=== PATIENT | male | born 1960 | race Caucasian/White ===

== ENCOUNTER 2018-06-16 06:22 | Emergency (ER) | payer MEDICAID ==
[~2018-06-16] VITALS: Ht 165.1 cm; Wt 73.0 kg
[~2018-06-16 06:22] MED LIST: AMLO10TA80 PO; ASPI-1159 PO; ATOR-2 PO; CINA30 PO; CLAR500T PO; DEXL60CA3 PO; FOLI-43 PO; FURO40TA5 PO; HYDR-4135 PO; LABE100T PO; OMEP20CA10 PO; REN800 PO; VALS320T2 PO; amoxicillin PO
[2018-06-16] MEDS ORDERED: SODIUM CHLORIDE 0.9% 1,000 ML IV ONE (08:11)
[2018-06-16] MEDS ORDERED: DEXTROSE 50% WATER 50ML SYRINGE IV ONE (08:30)
[2018-06-16] MEDS ORDERED: CALCIUM CHLORIDE 1GM/10ML SYR IV ONE (08:30)
[2018-06-16] MEDS ORDERED: INSULIN REGULAR (HUMULIN R) 300UNITS/3ML IV ONE (08:30)
[2018-06-16] MEDS ORDERED: SODIUM BICARBONATE 8.4% 1 MEQ/ML 50ML SYR IV ONE (08:30)
[2018-06-16 08:48] LABS: BASOPHILS % 0.9 % (0.0-2.0); EOSINOPHILS % 1.8 % (0.0-5.0); HEMATOCRIT. 35.3 % (42.0-52.0); HEMOGLOBIN. 11.3 g/dL (14.0-18.0); MEAN CORPUSCULAR HEMOGLOBIN 28.7 pg (28.0-32.0); MEAN CORPUSCULAR VOLUME 89.5 fL (80.0-94.0); MEAN PLATELET VOLUME 8.9 fl (7.4-10.4); MONOCYTES % 9.5 % (2.0-8.0); NEUTROPHILS % 69.8 % (40.0-76.0); PLATELET 165 x1000/uL (130-400); RED BLOOD CELL COUNT 3.94 mill/uL (4.7-6.1); RED CELL DISTRIBUTION WIDTH 16.7 % (11.6-14.6)
[2018-06-16 08:53] LABS: CHLORIDE 101 mEq/L (98-107)
[2018-06-16 08:55] LABS: INR 1.1; PROTHROMBIN TIME 11.5 sec (9.4-11.6)
[2018-06-16] MEDS ORDERED: IOHEXOL-300 100 ML BOTTLE ONE (10:30)
[2018-06-16 11:51] VITALS: BP 177/91
== END 2018-06-16 12:03 | disposition home or self-care (01) ==
LOC: ER 06:22
DX: R63.4 Abnormal weight loss (principal); R19.7 Diarrhea, unspecified; E87.5 Hyperkalemia; I10 Essential (primary) hypertension; E11.9 Type 2 diabetes mellitus without complications; Z86.73 Personal history of transient ischemic attack (TIA), and cerebral infarction without residual deficits; Z87.891 Personal history of nicotine dependence; Z79.82 Long term (current) use of aspirin; Z79.899 Other long term (current) drug therapy
CPT/HCPCS: 36415; 71260; 74177; 80053; 83880; 84484; 85025; 85610; 93005; 96374; 96375; 99285; J1815; J3490; J7030; Q9967

== ENCOUNTER 2018-07-25 14:27 | Emergency (ER) | payer MEDICAID ==
[~2018-07-25] VITALS: Ht 162.6 cm; Wt 59.2 kg
[~2018-07-25 14:27] MED LIST changes: -LABE100T PO; +LABE100T5 PO
[2018-07-25 15:33] LABS: BASOPHILS % 0.8 % (0.0-2.0); HEMATOCRIT. 32.1 % (42.0-52.0); HEMOGLOBIN. 10.4 g/dL (14.0-18.0); LYMPHOCYTES % 20.7 % (20.0-50.0); MEAN CORPUSCULAR HEMOGLOBIN 28.5 pg (28.0-32.0); MEAN CORPUSCULAR VOLUME 87.6 fL (80.0-94.0); MEAN PLATELET VOLUME 8.6 fl (7.4-10.4); MONOCYTES % 8.7 % (2.0-8.0); NEUTROPHILS % 68.8 % (40.0-76.0); PLATELET 192 x1000/uL (130-400); RED BLOOD CELL COUNT 3.66 mill/uL (4.7-6.1)
[2018-07-25 15:40] LABS: CHLORIDE 100 mEq/L (98-107); INR 1.2; PROTHROMBIN TIME 11.7 sec (9.1-11.1)
[2018-07-25] MEDS ORDERED: IOHEXOL-350 100 ML BOTTLE ONE (21:42)
[2018-07-25 22:27] VITALS: BP 134/68
== END 2018-07-25 22:28 | disposition home or self-care (01) ==
LOC: ER 14:27
DX: I12.0 Hypertensive chronic kidney disease with stage 5 chronic kidney disease or end stage renal disease (principal); N18.6 End stage renal disease; R19.7 Diarrhea, unspecified; E78.00 Pure hypercholesterolemia, unspecified; E11.22 Type 2 diabetes mellitus with diabetic chronic kidney disease; Z99.2 Dependence on renal dialysis; Z79.899 Other long term (current) drug therapy; Z79.82 Long term (current) use of aspirin
CPT/HCPCS: 36415; 71275; 74174; 80053; 84484; 85025; 85610; 93005; 99285; Q9967

== ENCOUNTER 2020-01-18 16:30 | Inpatient (IN) | payer MEDICAID, OTHER ==
[~2020-01-18] VITALS: Ht 165.1 cm; Wt 59.1 kg
[~2020-01-18 16:30] MED LIST changes: +ACUL5 RIGHTEYE; -ASPI-1159 PO; +ASPI-1497 PO; +CHOL200074 PO; -CINA30 PO; -CLAR500T PO; -LABE100T5 PO; +LABE200T28 PO; +LOPE2CAP PO; +MINO10TA PO; +OFLO5DRO3 RIGHTEYE; -OMEP20CA10 PO; +PRED5DRO22 RIGHTEYE; +TIMO5DRO32 RIGHTEYE; -VALS320T2 PO; -amoxicillin PO
[2020-01-19] VITALS (7 sets, daily range): BP systolic 102–181; BP diastolic 52–89
[2020-01-19 00:36] LABS: BASOPHILS % 0.9 % (0.0-2.0); EOSINOPHILS % 1.1 % (0.0-5.0); HEMATOCRIT. 43.1 % (42.0-52.0); HEMOGLOBIN. 14.1 g/dL (14.0-18.0); LYMPHOCYTES % 21.8 % (20.0-50.0); MEAN CORPUSCULAR HEMOGLOBIN 29.5 pg (28.0-32.0); MEAN CORPUSCULAR VOLUME 89.9 fL (80.0-94.0); MEAN PLATELET VOLUME 8.8 fl (7.4-10.4); NEUTROPHILS % 66.2 % (40.0-76.0); PLATELET 249 x1000/uL (130-400); RED BLOOD CELL COUNT 4.79 mill/uL (4.7-6.1); RED CELL DISTRIBUTION WIDTH 15.2 % (11.6-14.6)
[2020-01-19 00:40] LABS: CHLORIDE 99 mEq/L (98-107)
[2020-01-19 00:41] LABS: INR 1.1; PARTIAL THROMBOPLASTIN TIME 30.3 sec (23.4-31.0); PROTHROMBIN TIME 11.6 sec (9.6-11.0)
[2020-01-19 00:43] LABS: ETHANOL BLOOD < 10 mg/dL
[2020-01-19] MEDS ORDERED: LOPERAMIDE HCL 2MG CAPSULE PO PRN (06:45)
[2020-01-19] MEDS: ASPIRIN 81MG TABLET PO SCH ×2 (09:00→09:48)
[2020-01-19] MEDS: AMLODIPINE 10MG TABLET PO SCH (09:00)
[2020-01-19] MEDS: MINOXIDIL 10MG TABLET PO SCH ×2 (09:00→17:00)
[2020-01-19] MEDS: CHOLECALCIFEROL (D3) 1000 UNIT TABLET PO SCH (09:47)
[2020-01-19] MEDS: FOLIC ACID/VITAMIN B COMP W-C TABLET PO SCH (09:48)
[2020-01-19] MEDS: FOLIC ACID 1MG TABLET PO SCH (09:48)
[2020-01-19] MEDS: FUROSEMIDE 40MG TABLET PO SCH (09:49)
[2020-01-19] MEDS: TIMOLOL MALEATE 0.5% OPHTH DROPS 5ML RIGHTEYE SCH ×2 (09:49→21:47)
[2020-01-19] MEDS ORDERED: LIDOCAINE HCL 1% 20ML VIAL (Pyxis) INJ ONE (10:50)
[2020-01-19] MEDS ORDERED: SODIUM BICARBONATE 4% (2.4MEQ) 5ML VIAL IV ONE (10:51)
[2020-01-19] MEDS ORDERED: HYDRALAZINE 20MG/ML VIAL IV PRN (11:45)
[2020-01-19] MEDS: PREDNISOLONE ACETATE 1% OPHTH DROPS 5ML RIGHTEYE SCH ×2 (12:47→17:54)
[2020-01-19] MEDS: LABETALOL HCL 200MG TABLET PO SCH ×2 (14:00→21:46)
[2020-01-19] MEDS: HYDRALAZINE HCL 50MG TABLET PO SCH ×2 (14:00→21:46)
[2020-01-19] MEDS ORDERED: LEVOFLOXACIN 500MG PREMIX 100 ML IV SCH (17:00)
[2020-01-19] MEDS ORDERED: ATORVASTATIN CALCIUM 40MG TABLET PO SCH (21:00)
[2020-01-20] VITALS: BP 199/77
[2020-01-20] MEDS: PREDNISOLONE ACETATE 1% OPHTH DROPS 5ML RIGHTEYE SCH ×3 (00:05→12:30)
[2020-01-20 04:00] VITALS: BP 132/54
[2020-01-20] MEDS: LABETALOL HCL 200MG TABLET PO SCH ×2 (06:21→14:00)
[2020-01-20] MEDS: HYDRALAZINE HCL 50MG TABLET PO SCH ×2 (06:21→14:00)
[2020-01-20 07:09] LABS: BASOPHILS % 0.6 % (0.0-2.0); EOSINOPHILS % 1.4 % (0.0-5.0); HEMATOCRIT. 44.4 % (42.0-52.0); HEMOGLOBIN. 14.5 g/dL (14.0-18.0); LYMPHOCYTES % 19.6 % (20.0-50.0); MEAN CORPUSCULAR HEMOGLOBIN 28.9 pg (28.0-32.0); MEAN CORPUSCULAR VOLUME 88.6 fL (80.0-94.0); MEAN PLATELET VOLUME 8.7 fl (7.4-10.4); MONOCYTES % 9.3 % (2.0-8.0); NEUTROPHILS % 69.1 % (40.0-76.0); PLATELET 303 x1000/uL (130-400); RED BLOOD CELL COUNT 5.01 mill/uL (4.7-6.1); RED CELL DISTRIBUTION WIDTH 15.4 % (11.6-14.6)
[2020-01-20 08:00] VITALS: BP 100/50
[2020-01-20] MEDS: AMLODIPINE 10MG TABLET PO SCH (09:00)
[2020-01-20] MEDS: MINOXIDIL 10MG TABLET PO SCH (09:00)
[2020-01-20] MEDS: FUROSEMIDE 40MG TABLET PO SCH (09:06)
[2020-01-20] MEDS: ASPIRIN 81MG TABLET PO SCH (09:06)
[2020-01-20] MEDS: FOLIC ACID 1MG TABLET PO SCH (09:06)
[2020-01-20] MEDS: FOLIC ACID/VITAMIN B COMP W-C TABLET PO SCH (09:06)
[2020-01-20] MEDS: CHOLECALCIFEROL (D3) 1000 UNIT TABLET PO SCH (09:06)
[2020-01-20] MEDS: TIMOLOL MALEATE 0.5% OPHTH DROPS 5ML RIGHTEYE SCH (09:38)
[2020-01-20 12:00] VITALS: BP 100/50
[2020-01-20 13:10] VITALS: BP 118/65
[2020-01-20] MEDS ORDERED: LEVOFLOXACIN 250MG PREMIX 50 ML IV SCH (17:00)
== END 2020-01-20 14:49 | disposition home or self-care (01) ==
LOC: ER 16:30 → 6WST 01-19 00:43 → EDBEDREQ 01-19 00:47 → EDBEDREQTM 01-19 00:47 → EDBEDREQDT 01-19 00:47 → ENRESERV 01-19 03:06 → 6WST 01-19 05:53
PROVIDERS: ADMIT Internal Medicine; ATTEND Internal Medicine
PROC: 5A1D70Z Performance of Urinary Filtration, Intermittent, Less than 6 Hours Per Day (ICD-10-PCS; principal; 2020-01-19)
PROC: 0W9G3ZZ Drainage of Peritoneal Cavity, Percutaneous Approach (ICD-10-PCS; 2020-01-19)
DX: R18.8 Other ascites (principal); E43 Unspecified severe protein-calorie malnutrition; E11.22 Type 2 diabetes mellitus with diabetic chronic kidney disease; I12.0 Hypertensive chronic kidney disease with stage 5 chronic kidney disease or end stage renal disease; N18.6 End stage renal disease; E78.5 Hyperlipidemia, unspecified; Z99.2 Dependence on renal dialysis; Z79.899 Other long term (current) drug therapy; Z79.82 Long term (current) use of aspirin; Z68.21 Body mass index [BMI] 21.0-21.9, adult
CPT/HCPCS: 36415; 49083; 71045; 74176; 80048; 80053; 80320; 82962; 83880; 84145; 84484; 85025; 87015; 87045; 87427; 87449; 87493; 93005; 99285; J0360; J1956; J3490; G0480

== ENCOUNTER 2020-02-15 09:27 | Emergency (ER) | payer MEDICAID, OTHER ==
[~2020-02-15] VITALS: Ht 165.1 cm; Wt 61.0 kg
[~2020-02-15 09:27] MED LIST changes: -ACUL5 RIGHTEYE; -OFLO5DRO3 RIGHTEYE
[2020-02-15 11:27] LABS: BASOPHILS % 1.1 % (0.0-2.0); EOSINOPHILS % 2.1 % (0.0-5.0); HEMATOCRIT. 38.2 % (42.0-52.0); HEMOGLOBIN. 12.5 g/dL (14.0-18.0); LYMPHOCYTES % 17.4 % (20.0-50.0); MEAN CORPUSCULAR VOLUME 88.8 fL (80.0-94.0); MEAN PLATELET VOLUME 8.1 fl (7.4-10.4); MONOCYTES % 8.3 % (2.0-8.0); NEUTROPHILS % 71.1 % (40.0-76.0); PLATELET 280 x1000/uL (130-400); RED CELL DISTRIBUTION WIDTH 15.8 % (11.6-14.6)
[2020-02-15 11:35] LABS: CHLORIDE 101 mEq/L (98-107)
[2020-02-15 12:53] LABS: PROTHROMBIN TIME 11.1 sec (9.6-11.0)
[2020-02-15] MEDS ORDERED: LIDOCAINE HCL/EPINEPHRINE 1%-EPI 1:100,000 30 ML VIAL INFIL ONE (14:15)
[2020-02-15] MEDS ORDERED: LIDOCAINE HCL/EPINEPHRINE 1%-EPI 1:100,000 20 ML VIAL INFIL SCH (14:30)
[2020-02-15 20:42] VITALS: BP 130/62
== END 2020-02-15 20:45 | disposition home or self-care (01) ==
LOC: ER 09:27
DX: R41.0 Disorientation, unspecified (principal); I12.0 Hypertensive chronic kidney disease with stage 5 chronic kidney disease or end stage renal disease; N18.6 End stage renal disease; Z99.2 Dependence on renal dialysis; Z98.890 Other specified postprocedural states; Z79.899 Other long term (current) drug therapy; Z79.82 Long term (current) use of aspirin
CPT/HCPCS: 36415; 49083; 80053; 85025; 93005; 99285

== ENCOUNTER 2020-03-17 06:44 | Emergency (ER) | payer MEDICAID, OTHER ==
[~2020-03-17] VITALS: Ht 165.1 cm; Wt 61.0 kg
[2020-03-17 08:46] LABS: BASOPHILS % 1.3 % (0.0-2.0); EOSINOPHILS % 1.4 % (0.0-5.0); HEMATOCRIT. 38.3 % (42.0-52.0); HEMOGLOBIN. 12.5 g/dL (14.0-18.0); LYMPHOCYTES % 18.2 % (20.0-50.0); MEAN CORPUSCULAR HEMOGLOBIN 29.9 pg (28.0-32.0); MEAN CORPUSCULAR VOLUME 91.6 fL (80.0-94.0); MEAN PLATELET VOLUME 8.4 fl (7.4-10.4); MONOCYTES % 8.9 % (2.0-8.0); NEUTROPHILS % 70.2 % (40.0-76.0); PLATELET 231 x1000/uL (130-400); RED BLOOD CELL COUNT 4.18 mill/uL (4.7-6.1); RED CELL DISTRIBUTION WIDTH 17.6 % (11.6-14.6)
[2020-03-17 08:54] LABS: CHLORIDE 102 mEq/L (98-107)
[2020-03-17 08:55] LABS: PROTHROMBIN TIME 10.5 sec (9.6-11.0)
[2020-03-17 10:13] VITALS: BP 135/65
== END 2020-03-17 10:35 | disposition home or self-care (01) ==
LOC: ER 06:52
DX: R18.8 Other ascites (principal); I12.0 Hypertensive chronic kidney disease with stage 5 chronic kidney disease or end stage renal disease; E11.22 Type 2 diabetes mellitus with diabetic chronic kidney disease; N18.6 End stage renal disease; Z99.2 Dependence on renal dialysis; Z79.899 Other long term (current) drug therapy
CPT/HCPCS: 36415; 80053; 85025; 99283

== ENCOUNTER 2020-03-21 06:32 | Emergency (ER) | payer MEDICAID ==
[~2020-03-21] VITALS: Ht 165.1 cm; Wt 61.0 kg
[2020-03-21 07:42] LABS: BASOPHILS % 1.1 % (0.0-2.0); EOSINOPHILS % 1.7 % (0.0-5.0); HEMATOCRIT. 37.9 % (42.0-52.0); HEMOGLOBIN. 12.3 g/dL (14.0-18.0); LYMPHOCYTES % 16.9 % (20.0-50.0); MEAN CORPUSCULAR VOLUME 92.3 fL (80.0-94.0); MEAN PLATELET VOLUME 8.6 fl (7.4-10.4); MONOCYTES % 7.8 % (2.0-8.0); NEUTROPHILS % 72.5 % (40.0-76.0); PLATELET 261 x1000/uL (130-400); RED CELL DISTRIBUTION WIDTH 17.5 % (11.6-14.6)
[2020-03-21 07:49] LABS: PROTHROMBIN TIME 10.7 sec (9.6-11.0)
[2020-03-21] MEDS ORDERED: LIDOCAINE HCL 1% 20ML VIAL (Pyxis) INJ ONE (11:01)
[2020-03-21] MEDS ORDERED: SODIUM BICARBONATE 4% (2.4MEQ) 5ML VIAL IV ONE (11:01)
[2020-03-21 12:39] VITALS: BP 112/53
== END 2020-03-21 13:03 | disposition home or self-care (01) ==
LOC: ER 06:41
DX: R18.8 Other ascites (principal); I10 Essential (primary) hypertension; N19 Unspecified kidney failure; E11.9 Type 2 diabetes mellitus without complications; Z98.890 Other specified postprocedural states; Z79.82 Long term (current) use of aspirin; Z79.899 Other long term (current) drug therapy
CPT/HCPCS: 36415; 49083; 82962; 85025; 85610; 85730; 99285; J3490; Z7610

== ENCOUNTER 2020-04-05 11:53 | Emergency (ER) | payer MEDICAID ==
[~2020-04-05] VITALS: Ht 160 cm; Wt 60.0 kg
[2020-04-05 13:02] VITALS: BP 111/54
== END 2020-04-05 13:09 | disposition home or self-care (01) ==
LOC: ER 12:04
DX: R18.8 Other ascites (principal); I12.0 Hypertensive chronic kidney disease with stage 5 chronic kidney disease or end stage renal disease; E11.22 Type 2 diabetes mellitus with diabetic chronic kidney disease; N18.6 End stage renal disease; Z99.2 Dependence on renal dialysis
CPT/HCPCS: 99281

== ENCOUNTER 2020-04-06 07:18 | Emergency (ER) | payer MEDICAID ==
[~2020-04-06] VITALS: Ht 160 cm; Wt 60.0 kg
[2020-04-06 08:26] LABS: EOSINOPHILS % 2.5 % (0.0-5.0); HEMATOCRIT. 36.5 % (42.0-52.0); HEMOGLOBIN. 12.1 g/dL (14.0-18.0); LYMPHOCYTES % 18.6 % (20.0-50.0); MEAN CORPUSCULAR HEMOGLOBIN 30.6 pg (28.0-32.0); MEAN CORPUSCULAR VOLUME 92.1 fL (80.0-94.0); MEAN PLATELET VOLUME 8.6 fl (7.4-10.4); NEUTROPHILS % 69.9 % (40.0-76.0); PLATELET 252 x1000/uL (130-400); RED BLOOD CELL COUNT 3.96 mill/uL (4.7-6.1); RED CELL DISTRIBUTION WIDTH 16.7 % (11.6-14.6)
[2020-04-06 08:27] LABS: INR 0.9; PROTHROMBIN TIME 10.2 sec (9.6-11.0)
[2020-04-06 08:28] LABS: CHLORIDE 101 mEq/L (98-107)
[2020-04-06] MEDS ORDERED: LIDOCAINE HCL 1% 20ML VIAL (Pyxis) INJ ONE (09:09)
[2020-04-06] MEDS ORDERED: SODIUM BICARBONATE 4% (2.4MEQ) 5ML VIAL IV ONE (09:10)
[2020-04-06 10:10] VITALS: BP 146/65
== END 2020-04-06 10:34 | disposition home or self-care (01) ==
LOC: ER 07:18
DX: R14.0 Abdominal distension (gaseous) (principal); E11.9 Type 2 diabetes mellitus without complications; I10 Essential (primary) hypertension; N28.9 Disorder of kidney and ureter, unspecified; Z79.899 Other long term (current) drug therapy; Z99.2 Dependence on renal dialysis
CPT/HCPCS: 36415; 49083; 80053; 83690; 85025; 85610; 87070; 87205; 89050; 99285; J3490; Z7610

== ENCOUNTER 2020-05-16 07:04 | Emergency (ER) | payer MEDICAID ==
[~2020-05-16] VITALS: Ht 165.1 cm; Wt 73.0 kg
[2020-05-16 07:49] LABS: BASOPHILS % 1.5 % (0.0-2.0); EOSINOPHILS % 1.8 % (0.0-5.0); HEMATOCRIT. 40.7 % (42.0-52.0); HEMOGLOBIN. 13.9 g/dL (14.0-18.0); MEAN CORPUSCULAR HEMOGLOBIN 32.3 pg (28.0-32.0); MEAN CORPUSCULAR VOLUME 94.7 fL (80.0-94.0); MONOCYTES % 8.2 % (2.0-8.0); NEUTROPHILS % 67.5 % (40.0-76.0); PLATELET 272 x1000/uL (130-400); RED CELL DISTRIBUTION WIDTH 14.6 % (11.6-14.6)
[2020-05-16 08:06] LABS: PROTHROMBIN TIME 10.7 sec (9.6-11.0)
[2020-05-16] MEDS ORDERED: LIDOCAINE HCL 1% 20ML VIAL (Pyxis) INJ ONE (09:26)
[2020-05-16] MEDS ORDERED: SODIUM BICARBONATE 4% (2.4MEQ) 5ML VIAL IV ONE (09:26)
[2020-05-16 12:30] VITALS: BP 147/53
== END 2020-05-16 12:00 | disposition home or self-care (01) ==
LOC: ER 07:04
DX: R18.8 Other ascites (principal); I12.0 Hypertensive chronic kidney disease with stage 5 chronic kidney disease or end stage renal disease; E11.22 Type 2 diabetes mellitus with diabetic chronic kidney disease; N18.6 End stage renal disease; Z99.2 Dependence on renal dialysis; Z98.890 Other specified postprocedural states; Z79.82 Long term (current) use of aspirin; Z79.899 Other long term (current) drug therapy
CPT/HCPCS: 36415; 49083; 85025; 85610; 85730; 99285; J3490; Z7610; 99284

== ENCOUNTER 2020-06-02 07:02 | Emergency (ER) | payer MEDICAID ==
[~2020-06-02] VITALS: Ht 165.1 cm; Wt 61.0 kg
[2020-06-02 08:19] LABS: BASOPHILS % 2.3 % (0.0-2.0); EOSINOPHILS % 2.1 % (0.0-5.0); HEMATOCRIT. 37.6 % (42.0-52.0); HEMOGLOBIN. 12.9 g/dL (14.0-18.0); LYMPHOCYTES % 20.7 % (20.0-50.0); MEAN CORPUSCULAR VOLUME 93.2 fL (80.0-94.0); MONOCYTES % 8.7 % (2.0-8.0); NEUTROPHILS % 66.2 % (40.0-76.0); PLATELET 278 x1000/uL (130-400); RED BLOOD CELL COUNT 4.04 mill/uL (4.7-6.1); RED CELL DISTRIBUTION WIDTH 14.5 % (11.6-14.6)
[2020-06-02 08:29] LABS: CHLORIDE 100 mEq/L (98-107)
[2020-06-02 09:01] LABS: PROTHROMBIN TIME 10.3 sec (9.6-11.0)
[2020-06-02 11:24] VITALS: BP 145/80
== END 2020-06-02 11:25 | disposition home or self-care (01) ==
LOC: ER 07:02
DX: R18.8 Other ascites (principal); K74.60 Unspecified cirrhosis of liver; I12.0 Hypertensive chronic kidney disease with stage 5 chronic kidney disease or end stage renal disease; N18.6 End stage renal disease; Z99.2 Dependence on renal dialysis
CPT/HCPCS: 36415; 49083; 80053; 83690; 85025; 85610; 87070; 87075; 87205; 89050; 99285; Z7610

== ENCOUNTER 2020-07-16 07:14 | Emergency (ER) | payer MEDICAID ==
[~2020-07-16] VITALS: Ht 165.1 cm; Wt 62.0 kg
[2020-07-16 08:13] LABS: EOSINOPHILS % 1.3 % (0.0-5.0); HEMATOCRIT. 39.2 % (42.0-52.0); LYMPHOCYTES % 21.8 % (20.0-50.0); MEAN CORPUSCULAR HEMOGLOBIN 30.5 pg (28.0-32.0); MEAN CORPUSCULAR VOLUME 91.8 fL (80.0-94.0); MEAN PLATELET VOLUME 8.3 fl (7.4-10.4); MONOCYTES % 8.8 % (2.0-8.0); NEUTROPHILS % 67.1 % (40.0-76.0); PLATELET 270 x1000/uL (130-400); RED BLOOD CELL COUNT 4.27 mill/uL (4.7-6.1); RED CELL DISTRIBUTION WIDTH 14.6 % (11.6-14.6)
[2020-07-16 08:16] LABS: CHLORIDE 94 mEq/L (98-107)
[2020-07-16 08:20] LABS: PROTHROMBIN TIME 10.5 sec (9.6-11.0)
[2020-07-16 08:23] LABS: AMYLASE 164 IU/L (25-115)
[2020-07-16] MEDS ORDERED: LIDOCAINE HCL 1% 20ML VIAL (Pyxis) INJ ONE (10:14)
[2020-07-16] MEDS ORDERED: SODIUM BICARBONATE 4% (2.4MEQ) 5ML VIAL IV ONE (10:14)
[2020-07-16 13:03] VITALS: BP 167/72
== END 2020-07-16 14:04 | disposition home or self-care (01) ==
LOC: ER 07:14
DX: R18.8 Other ascites (principal); R03.0 Elevated blood-pressure reading, without diagnosis of hypertension
CPT/HCPCS: 36415; 49083; 80053; 82150; 83615; 83690; 85025; 85610; 87070; 87205; 89050; 93005; 99285; J3490; Z7610

== ENCOUNTER 2020-08-11 07:49 | Emergency (ER) | payer MEDICAID ==
[~2020-08-11] VITALS: Ht 162.6 cm; Wt 60.0 kg
[2020-08-11 09:02] LABS: BASOPHILS % 0.9 % (0.0-2.0); EOSINOPHILS % 1.9 % (0.0-5.0); HEMOGLOBIN. 12.5 g/dL (14.0-18.0); LYMPHOCYTES % 22.1 % (20.0-50.0); MEAN CORPUSCULAR HEMOGLOBIN 30.6 pg (28.0-32.0); MEAN PLATELET VOLUME 8.6 fl (7.4-10.4); MONOCYTES % 9.2 % (2.0-8.0); NEUTROPHILS % 65.9 % (40.0-76.0); PLATELET 217 x1000/uL (130-400); RED BLOOD CELL COUNT 4.08 mill/uL (4.7-6.1); RED CELL DISTRIBUTION WIDTH 15.6 % (11.6-14.6)
[2020-08-11 09:09] LABS: CHLORIDE 99 mEq/L (98-107)
[2020-08-11 09:10] LABS: PROTHROMBIN TIME 10.6 sec (9.6-11.0)
[2020-08-11] MEDS ORDERED: SODIUM BICARBONATE 4% (2.4MEQ) 5ML VIAL IV ONE (09:38)
[2020-08-11] MEDS ORDERED: LIDOCAINE HCL 1% 20ML VIAL (Pyxis) INJ ONE (09:38)
[2020-08-11] MEDS ORDERED: AMLODIPINE 10MG TABLET PO NR (11:00)
[2020-08-11] MEDS ORDERED: HYDRALAZINE HCL 50MG TABLET PO NR (11:00)
[2020-08-11 11:57] VITALS: BP 180/76
== END 2020-08-11 12:01 | disposition home or self-care (01) ==
LOC: ER 07:58
DX: R18.8 Other ascites (principal); I12.0 Hypertensive chronic kidney disease with stage 5 chronic kidney disease or end stage renal disease; N18.6 End stage renal disease; Z99.2 Dependence on renal dialysis
CPT/HCPCS: 36415; 49083; 80053; 85025; 85610; 93005; 99285; J3490; Z7610

== ENCOUNTER 2020-09-01 07:09 | Emergency (ER) | payer MEDICAID ==
[~2020-09-01] VITALS: Ht 167.6 cm; Wt 65.0 kg
[2020-09-01 09:39] LABS: BASOPHILS % 0.7 % (0.0-2.0); EOSINOPHILS % 2.7 % (0.0-5.0); HEMATOCRIT. 32.4 % (42.0-52.0); HEMOGLOBIN. 10.9 g/dL (14.0-18.0); LYMPHOCYTES % 21.8 % (20.0-50.0); MEAN CORPUSCULAR HEMOGLOBIN 31.4 pg (28.0-32.0); MEAN CORPUSCULAR VOLUME 93.8 fL (80.0-94.0); MEAN PLATELET VOLUME 8.4 fl (7.4-10.4); MONOCYTES % 8.7 % (2.0-8.0); NEUTROPHILS % 66.1 % (40.0-76.0); PLATELET 233 x1000/uL (130-400); RED BLOOD CELL COUNT 3.45 mill/uL (4.7-6.1); RED CELL DISTRIBUTION WIDTH 15.3 % (11.6-14.6)
[2020-09-01 09:48] LABS: CHLORIDE 100 mEq/L (98-107)
[2020-09-01 09:50] LABS: PROTHROMBIN TIME 10.5 sec (9.6-11.0)
[2020-09-01] MEDS ORDERED: SODIUM BICARBONATE 4% (2.4MEQ) 5ML VIAL IV ONE (10:11)
[2020-09-01] MEDS ORDERED: LIDOCAINE HCL 1% 20ML VIAL (Pyxis) INJ ONE (10:11)
[2020-09-01 12:25] VITALS: BP 153/74
== END 2020-09-01 12:32 | disposition home or self-care (01) ==
LOC: ER 07:09
DX: K70.31 Alcoholic cirrhosis of liver with ascites (principal); I12.0 Hypertensive chronic kidney disease with stage 5 chronic kidney disease or end stage renal disease; E11.22 Type 2 diabetes mellitus with diabetic chronic kidney disease; N18.6 End stage renal disease; F10.10 Alcohol abuse, uncomplicated; Y90.9 Presence of alcohol in blood, level not specified; Z99.2 Dependence on renal dialysis
CPT/HCPCS: 36415; 49083; 80053; 83690; 85025; 85610; 87070; 87075; 87205; 89050; 93005; 99284; J3490; Z7610

== ENCOUNTER 2020-09-24 08:24 | Emergency (ER) | payer MEDICAID ==
[~2020-09-24] VITALS: Ht 165.1 cm; Wt 61.0 kg
[2020-09-24 08:40] VITALS: BP 147/63
[2020-09-24 09:14] LABS: BASOPHILS % 0.9 % (0.0-2.0); EOSINOPHILS % 1.9 % (0.0-5.0); HEMATOCRIT. 38.1 % (42.0-52.0); HEMOGLOBIN. 12.4 g/dL (14.0-18.0); LYMPHOCYTES % 22.9 % (20.0-50.0); MEAN CORPUSCULAR HEMOGLOBIN 31.2 pg (28.0-32.0); MEAN CORPUSCULAR VOLUME 95.4 fL (80.0-94.0); MEAN PLATELET VOLUME 9.1 fl (7.4-10.4); MONOCYTES % 8.2 % (2.0-8.0); NEUTROPHILS % 66.1 % (40.0-76.0); PLATELET 238 x1000/uL (130-400); RED BLOOD CELL COUNT 3.99 mill/uL (4.7-6.1); RED CELL DISTRIBUTION WIDTH 15.3 % (11.6-14.6)
[2020-09-24 09:16] LABS: CHLORIDE 96 mEq/L (98-107)
[2020-09-24 09:20] LABS: PROTHROMBIN TIME 10.4 sec (9.6-11.0)
[2020-09-24] MEDS ORDERED: SODIUM BICARBONATE 4% (2.4MEQ) 5ML VIAL IV ONE (09:58)
[2020-09-24] MEDS ORDERED: LIDOCAINE HCL 1% 20ML VIAL (Pyxis) INJ ONE (09:58)
== END 2020-09-24 12:08 | disposition home or self-care (01) ==
LOC: ER 08:31
DX: K70.31 Alcoholic cirrhosis of liver with ascites (principal); F10.10 Alcohol abuse, uncomplicated; Y90.9 Presence of alcohol in blood, level not specified; I12.0 Hypertensive chronic kidney disease with stage 5 chronic kidney disease or end stage renal disease; E11.22 Type 2 diabetes mellitus with diabetic chronic kidney disease; N18.6 End stage renal disease; Z99.2 Dependence on renal dialysis; Z79.84 Long term (current) use of oral hypoglycemic drugs; Z79.899 Other long term (current) drug therapy
CPT/HCPCS: 36415; 49083; 80053; 83690; 85025; 85610; 87070; 87075; 87205; 89050; 93005; 99285; J3490; Z7610

== ENCOUNTER 2020-10-17 07:50 | Emergency (ER) | payer MEDICAID ==
[~2020-10-17] VITALS: Ht 165.1 cm; Wt 61.9 kg
[2020-10-17 08:57] LABS: BASOPHILS % 0.7 % (0.0-2.0); EOSINOPHILS % 1.7 % (0.0-5.0); HEMATOCRIT. 37.1 % (42.0-52.0); HEMOGLOBIN. 12.3 g/dL (14.0-18.0); LYMPHOCYTES % 19.9 % (20.0-50.0); MEAN CORPUSCULAR HEMOGLOBIN 31.1 pg (28.0-32.0); MEAN CORPUSCULAR VOLUME 93.9 fL (80.0-94.0); MEAN PLATELET VOLUME 8.6 fl (7.4-10.4); MONOCYTES % 8.9 % (2.0-8.0); NEUTROPHILS % 68.8 % (40.0-76.0); PLATELET 243 x1000/uL (130-400); RED BLOOD CELL COUNT 3.95 mill/uL (4.7-6.1); RED CELL DISTRIBUTION WIDTH 14.3 % (11.6-14.6)
[2020-10-17 09:03] LABS: CHLORIDE 100 mEq/L (98-107)
[2020-10-17 09:07] LABS: PARTIAL THROMBOPLASTIN TIME 27.2 sec (23.4-31.0); PROTHROMBIN TIME 10.5 sec (9.6-11.0)
[2020-10-17] MEDS ORDERED: LIDOCAINE HCL 1% 20ML VIAL (Pyxis) INJ ONE (10:18)
[2020-10-17] MEDS ORDERED: SODIUM BICARBONATE 4% (2.4MEQ) 5ML VIAL IV ONE (10:19)
[2020-10-17 11:30] VITALS: BP 144/68
== END 2020-10-17 13:16 | disposition home or self-care (01) ==
LOC: ER 07:50
DX: R18.8 Other ascites (principal); I10 Essential (primary) hypertension; E11.9 Type 2 diabetes mellitus without complications; Z20.828 Contact with and (suspected) exposure to other viral communicable diseases; Z79.899 Other long term (current) drug therapy; Z79.82 Long term (current) use of aspirin
CPT/HCPCS: 36415; 49083; 80053; 85025; 85610; 85730; 87426; 93005; 99285; J3490; Z7610

== ENCOUNTER 2020-11-12 08:11 | Emergency (ER) | payer MEDICAID ==
[~2020-11-12] VITALS: Ht 165.1 cm; Wt 63.0 kg
[2020-11-12 10:31] LABS: HEMATOCRIT. 36.4 % (42.0-52.0); HEMOGLOBIN. 12.1 g/dL (14.0-18.0); LYMPHOCYTES % 20.5 % (20.0-50.0); MEAN CORPUSCULAR VOLUME 93.4 fL (80.0-94.0); MEAN PLATELET VOLUME 8.1 fl (7.4-10.4); NEUTROPHILS % 68.5 % (40.0-76.0); PLATELET 219 x1000/uL (130-400); RED BLOOD CELL COUNT 3.89 mill/uL (4.7-6.1); RED CELL DISTRIBUTION WIDTH 14.1 % (11.6-14.6)
[2020-11-12 10:38] LABS: CHLORIDE 100 mEq/L (98-107)
[2020-11-12 11:22] LABS: PROTHROMBIN TIME 10.9 sec (9.6-11.0)
[2020-11-12 15:07] VITALS: BP 131/57
== END 2020-11-12 17:07 | disposition left against medical advice (07) ==
LOC: ER 08:11
DX: R18.8 Other ascites (principal); I12.0 Hypertensive chronic kidney disease with stage 5 chronic kidney disease or end stage renal disease; K76.9 Liver disease, unspecified; E11.22 Type 2 diabetes mellitus with diabetic chronic kidney disease; N18.6 End stage renal disease; Z99.2 Dependence on renal dialysis; Z79.84 Long term (current) use of oral hypoglycemic drugs; Z79.899 Other long term (current) drug therapy; Z79.82 Long term (current) use of aspirin
CPT/HCPCS: 36415; 80053; 85025; 87426; 93005; 99284

== ENCOUNTER 2020-12-08 07:10 | Emergency (ER) | payer MEDICAID ==
[~2020-12-08] VITALS: Ht 167.6 cm; Wt 56.0 kg
[2020-12-08 08:21] LABS: CHLORIDE 100 mEq/L (98-107)
[2020-12-08 08:24] LABS: PROTHROMBIN TIME 10.6 sec (9.6-11.0)
[2020-12-08 08:34] LABS: BASOPHILS % 0.9 % (0.0-2.0); EOSINOPHILS % 1.6 % (0.0-5.0); HEMOGLOBIN. 12.2 g/dL (14.0-18.0); MEAN CORPUSCULAR HEMOGLOBIN 30.5 pg (28.0-32.0); MEAN CORPUSCULAR VOLUME 92.2 fL (80.0-94.0); MEAN PLATELET VOLUME 8.3 fl (7.4-10.4); MONOCYTES % 9.5 % (2.0-8.0); PLATELET 253 x1000/uL (130-400); RED BLOOD CELL COUNT 4.02 mill/uL (4.7-6.1); RED CELL DISTRIBUTION WIDTH 14.5 % (11.6-14.6)
[2020-12-08] MEDS ORDERED: LIDOCAINE HCL 1% 20ML VIAL (Pyxis) INJ ONE (10:27)
[2020-12-08] MEDS ORDERED: SODIUM BICARBONATE 4% (2.4MEQ) 5ML VIAL IV ONE (10:28)
[2020-12-08 12:09] VITALS: BP 137/79
== END 2020-12-08 12:13 | disposition home or self-care (01) ==
LOC: ER 07:10
DX: R18.8 Other ascites (principal); K74.69 Other cirrhosis of liver; Z20.822 Contact with and (suspected) exposure to COVID-19; I12.9 Hypertensive chronic kidney disease with stage 1 through stage 4 chronic kidney disease, or unspecified chronic kidney disease; N18.9 Chronic kidney disease, unspecified; E11.22 Type 2 diabetes mellitus with diabetic chronic kidney disease; Z79.4 Long term (current) use of insulin; Z79.899 Other long term (current) drug therapy
CPT/HCPCS: 36415; 49083; 80053; 85025; 85610; 87426; 93005; 99285; J3490; Z7610

== ENCOUNTER 2020-12-29 07:08 | Emergency (ER) | payer MEDICAID ==
[~2020-12-29] VITALS: Ht 162.6 cm; Wt 62.0 kg
[2020-12-29 08:22] LABS: BASOPHILS % 0.9 % (0.0-2.0); EOSINOPHILS % 1.7 % (0.0-5.0); HEMATOCRIT. 35.8 % (42.0-52.0); HEMOGLOBIN. 11.8 g/dL (14.0-18.0); LYMPHOCYTES % 18.8 % (20.0-50.0); MEAN CORPUSCULAR HEMOGLOBIN 30.6 pg (28.0-32.0); MEAN CORPUSCULAR VOLUME 92.8 fL (80.0-94.0); MEAN PLATELET VOLUME 8.4 fl (7.4-10.4); MONOCYTES % 9.3 % (2.0-8.0); NEUTROPHILS % 69.3 % (40.0-76.0); PLATELET 258 x1000/uL (130-400); RED BLOOD CELL COUNT 3.86 mill/uL (4.7-6.1); RED CELL DISTRIBUTION WIDTH 14.6 % (11.6-14.6)
[2020-12-29 08:32] LABS: PROTHROMBIN TIME 10.3 sec (9.6-11.0)
[2020-12-29 08:34] LABS: CHLORIDE 103 mEq/L (98-107)
[2020-12-29] MEDS ORDERED: LIDOCAINE HCL 1% 20ML VIAL (Pyxis) INJ ONE (09:22)
[2020-12-29] MEDS ORDERED: SODIUM BICARBONATE 4% (2.4MEQ) 5ML VIAL IV ONE (09:22)
[2020-12-29 10:30] VITALS: BP 140/78
== END 2020-12-29 10:30 | disposition home or self-care (01) ==
LOC: ER 07:18
DX: R18.8 Other ascites (principal); Z20.822 Contact with and (suspected) exposure to COVID-19; K72.90 Hepatic failure, unspecified without coma; N18.6 End stage renal disease; Z99.2 Dependence on renal dialysis
CPT/HCPCS: 36415; 49083; 80053; 83690; 85025; 85610; 87426; 93005; 99285; J3490; Z7610

== ENCOUNTER 2021-01-23 13:48 | Inpatient (IN) | payer MEDICAID ==
[~2021-01-23] VITALS: Ht 165.1 cm; Wt 62.6 kg
[~2021-01-23 13:48] MED LIST changes: -LABE200T28 PO; +LABE200T9 PO
[2021-01-23 15:53] LABS: CHLORIDE 103 mEq/L (98-107)
[2021-01-23 15:55] LABS: BASOPHILS % 1.3 % (0.0-2.0); EOSINOPHILS % 1.7 % (0.0-5.0); HEMATOCRIT. 34.9 % (42.0-52.0); HEMOGLOBIN. 11.6 g/dL (14.0-18.0); LYMPHOCYTES % 22.3 % (20.0-50.0); MEAN CORPUSCULAR HEMOGLOBIN 30.9 pg (28.0-32.0); MEAN CORPUSCULAR VOLUME 93.4 fL (80.0-94.0); MONOCYTES % 10.4 % (2.0-8.0); NEUTROPHILS % 64.3 % (40.0-76.0); PLATELET 240 x1000/uL (130-400); RED BLOOD CELL COUNT 3.74 mill/uL (4.7-6.1); RED CELL DISTRIBUTION WIDTH 14.6 % (11.6-14.6)
[2021-01-23 16:02] LABS: PROTHROMBIN TIME 10.8 sec (9.6-11.0)
[2021-01-23] MEDS ORDERED: HYDRALAZINE HCL 100MG TABLET PO SCH (22:15)
[2021-01-23] MEDS ORDERED: ONDANSETRON HCL 4MG/2ML INJ IV PRN (22:15)
[2021-01-23] MEDS ORDERED: ACETAMINOPHEN 325MG TABLET PO PRN (22:15)
[2021-01-23 22:30] VITALS: BP 183/81
[2021-01-23] MEDS: AMLODIPINE 10MG TABLET PO SCH (22:55)
[2021-01-24] VITALS: BP 183/81
[2021-01-24 04:00] VITALS: BP 115/64
[2021-01-24] MEDS: HYDRALAZINE HCL 100MG TABLET PO SCH ×3 (06:27→21:06)
[2021-01-24 08:00] VITALS: BP 145/58
[2021-01-24] MEDS ORDERED: LIDOCAINE HCL 1% 20ML VIAL (Pyxis) INJ ONE (08:26)
[2021-01-24] MEDS ORDERED: SODIUM BICARBONATE 4% (2.4MEQ) 5ML VIAL IV ONE (08:26)
[2021-01-24] MEDS: AMLODIPINE 10MG TABLET PO SCH (09:32)
[2021-01-24 12:00] VITALS: BP 123/56
[2021-01-24 16:00] VITALS: BP 116/50
[2021-01-24 20:00] VITALS: BP 132/84
[2021-01-25] VITALS: BP 111/45
[2021-01-25 04:00] VITALS: BP 125/53
[2021-01-25 07:41] LABS: BASOPHILS % 0.6 % (0.0-2.0); EOSINOPHILS % 1.5 % (0.0-5.0); HEMATOCRIT. 33.8 % (42.0-52.0); HEMOGLOBIN. 11.3 g/dL (14.0-18.0); LYMPHOCYTES % 25.9 % (20.0-50.0); MEAN CORPUSCULAR HEMOGLOBIN 30.6 pg (28.0-32.0); MEAN CORPUSCULAR VOLUME 91.9 fL (80.0-94.0); MEAN PLATELET VOLUME 8.5 fl (7.4-10.4); MONOCYTES % 7.6 % (2.0-8.0); NEUTROPHILS % 64.4 % (40.0-76.0); PLATELET 234 x1000/uL (130-400); RED BLOOD CELL COUNT 3.68 mill/uL (4.7-6.1); RED CELL DISTRIBUTION WIDTH 14.7 % (11.6-14.6)
[2021-01-25 08:00] VITALS: BP 146/60
[2021-01-25] MEDS: AMLODIPINE 10MG TABLET PO SCH (08:45)
[2021-01-25 11:46] VITALS: BP 120/52
[2021-01-25 12:00] VITALS: BP 121/52
== END 2021-01-25 12:15 | disposition home or self-care (01) ==
LOC: ER 13:48 → 6WST 17:21 → EDBEDREQ 17:29 → EDBEDREQTM 17:29 → ENRESERV 21:04
PROVIDERS: ADMIT Internal Medicine; ATTEND Internal Medicine
PROC: 5A1D70Z Performance of Urinary Filtration, Intermittent, Less than 6 Hours Per Day (ICD-10-PCS; principal; 2021-01-24)
PROC: 0W9G3ZZ Drainage of Peritoneal Cavity, Percutaneous Approach (ICD-10-PCS; 2021-01-24)
DX: K76.9 Liver disease, unspecified (principal); R18.8 Other ascites; D63.8 Anemia in other chronic diseases classified elsewhere; E44.1 Mild protein-calorie malnutrition; E78.5 Hyperlipidemia, unspecified; I12.0 Hypertensive chronic kidney disease with stage 5 chronic kidney disease or end stage renal disease; N18.6 End stage renal disease; Z20.822 Contact with and (suspected) exposure to COVID-19; Z99.2 Dependence on renal dialysis; Z68.23 Body mass index [BMI] 23.0-23.9, adult; Z79.82 Long term (current) use of aspirin; Z79.899 Other long term (current) drug therapy
CPT/HCPCS: 36415; 49083; 71045; 74176; 80048; 80053; 83605; 83880; 84484; 85025; 87426; 93005; 99285; J3490

== ENCOUNTER 2021-02-11 07:33 | Emergency (ER) | payer MEDICAID ==
[~2021-02-11] VITALS: Ht 170.2 cm; Wt 78.0 kg
[2021-02-11 08:37] LABS: BASOPHILS % 1.2 % (0.0-2.0); CHLORIDE 100 mEq/L (98-107); HEMATOCRIT. 33.7 % (42.0-52.0); HEMOGLOBIN. 11.1 g/dL (14.0-18.0); LYMPHOCYTES % 21.6 % (20.0-50.0); MEAN CORPUSCULAR HEMOGLOBIN 30.6 pg (28.0-32.0); MEAN CORPUSCULAR VOLUME 93.1 fL (80.0-94.0); MEAN PLATELET VOLUME 8.2 fl (7.4-10.4); MONOCYTES % 12.1 % (2.0-8.0); NEUTROPHILS % 63.1 % (40.0-76.0); PLATELET 222 x1000/uL (130-400); RED BLOOD CELL COUNT 3.62 mill/uL (4.7-6.1)
[2021-02-11 08:41] LABS: ETHANOL BLOOD < 10 mg/dL
[2021-02-11 09:17] LABS: PARTIAL THROMBOPLASTIN TIME 26.8 sec (23.4-31.0); PROTHROMBIN TIME 10.9 sec (9.6-11.0)
[2021-02-11] MEDS ORDERED: ACETAMINOPHEN 325MG TABLET PO PRN (13:00)
[2021-02-11] MEDS ORDERED: ONDANSETRON HCL 4MG/2ML INJ IV PRN (13:00)
[2021-02-11] MEDS ORDERED: SODIUM BICARBONATE 4% (2.4MEQ) 5ML VIAL IV ONE (13:51)
[2021-02-11] MEDS ORDERED: LIDOCAINE HCL 1% 20ML VIAL (Pyxis) INJ ONE (13:51)
[2021-02-11 17:12] VITALS: BP 136/84
[2021-02-12] MEDS ORDERED: AMLODIPINE 10MG TABLET PO SCH (09:00)
== END 2021-02-11 17:43 | disposition home or self-care (01) ==
LOC: ER 07:33 → ENRESERV 16:20 → CANBEDREQ 16:52 → ER 17:43
DX: R18.8 Other ascites (principal); Z20.822 Contact with and (suspected) exposure to COVID-19; I12.0 Hypertensive chronic kidney disease with stage 5 chronic kidney disease or end stage renal disease; N18.6 End stage renal disease; D63.1 Anemia in chronic kidney disease; K76.9 Liver disease, unspecified; E44.1 Mild protein-calorie malnutrition; Z68.26 Body mass index [BMI] 26.0-26.9, adult; Z99.2 Dependence on renal dialysis
CPT/HCPCS: 36415; 49083; 71045; 80053; 80320; 83690; 83880; 84484; 85025; 85610; 85730; 87426; 93005; 99285; J3490; Z7610; G0480